=== PATIENT | male | born 1960 | race Caucasian/White ===

== ENCOUNTER 2016-06-22 12:51 | Emergency (ER) | payer BC ==
[2016-06-22] MEDS ORDERED: Ondansetron 4 MG/2 ML SDV IVPUSH ONE (13:25)
[2016-06-22] MEDS ORDERED: Sodium Chloride 0.9% 10 ML Syringe FLUSH PRN (13:25)
[2016-06-22] MEDS ORDERED: Sodium Chloride 0.9% 1,000 ML IV SCH (13:30)
--- NOTE | 2016-06-22 14:58 | EDM.PDOC ---
ED HPI GI/ABDOMINAL - General Chief Complaint: Gastrointestinal Problem Stated Complaint: SENT BY WALK-IN FOR AN EKG Time Seen by Provider: 06/22/16 13:16 Source of Information: Reports: Patient History Limitations: Reports: No limitations - History of Present Illness INITIAL COMMENTS - FREE TEXT/NARRATIVE: The patient presents with a cough and generalized weakness for about 1 week. He went to the walk in clinic and he vomited once. They were concerned it was his heart and they sent him over to be evaluated. He denies chest pain or shortness of breath. He did not check his temp ever but he felt warm and had the chills. He is nauseated now. He has no abdominal pain. He has no diarrhea or dysuria. He has been under lots of stress lately with a large bull sale last week. Timing/Duration: Reports: Week(s): (1) Context: Denies: sick contact, bad/questionable food, out of country travel, recent surgery Associated Symptoms: Reports: fever/chills, nausea/vomiting. Denies: chest pain , diarrhea - Related Data Allergies/ADRs: Allergies Allergy/AdvReac Type Severity Reaction Status Date / Time No Known Allergies Allergy Verified 06/22/16 13:03 Home Meds: Home Meds Azithromycin [IJD: Azithromycin] 250 mg PO DAILY #6 tab 06/22/16 [Rx] Codeine/Promethazine [Phenergan with Codeine] 5 - 10 ml PO Q6HR PRN #240 ml [Rx] Ondansetron [Zofran ODT] 4 mg PO Q6H PRN #20 tab.dis 06/22/16 [Rx] Past Medical History - Past Health History Medical/Surgical History: Denies Medical/Surgical History Cardiovascular History: Reports: None Other Respiratory History: pt has had a cough for 3-4 days Musculoskeletal History: Reports: None Neurological History: Reports: None Psychiatric History: Reports: None Endocrine/Metabolic History: Reports: None Oncologic (Cancer) History: Reports: None Dermatologic History: Reports: None Social & Family History - Family History Family Medical History: Noncontributory - Tobacco Use Smoking Status *Q: Never Smoker - Caffeine Use Caffeine Use: Reports: Coffee - Alcohol Use Days Per Week of Alcohol Use: 1 Number of Drinks Per Day: 1 Total Drinks Per Week: 1 - Recreational Drug Use Recreational Drug Use: No ED ROS GENERAL - Review of Systems Review Of Systems: See Below Constitutional: Reports: night sweats HEENT: Reports: No symptoms Respiratory: Reports: Cough. Denies: Shortness of Breath Cardiovascular: Reports: No symptoms Endocrine: Reports: no symptoms GI/Abdominal: Reports: Nausea, Vomiting. Denies: Abdominal pain, Diarrhea : Reports: no symptoms Musculoskeletal: Reports: no symptoms Skin: Reports: no symptoms ED EXAM, GI/ABD - Physical Exam Exam: See Below Exam Limited By: No limitations General Appearance: alert, no apparent distress Ears: normal external exam Nose: normal inspection Head: atraumatic, normocephalic Neck: normal inspection Respiratory/Chest: no respiratory distress, lungs clear, normal breath sounds Cardiovascular: regular rate, rhythm, no edema, no murmur GI/Abdominal: soft, non tender, no organomegaly, no mass Back Exam: normal inspection Extremities: normal inspection EKG INTERPRETATION EKG Date: 06/22/16 Time: 13:03 Rhythm: NSR Rate (beats/min): 79 [place]: normal P-wave: present QRS: normal ST-T: normal QT: normal EKG Interpretation Comments: Q waves in the inferior leads. Course - Vital Signs Last Recorded V/S: Last Vital Signs Temp 97.9 F 06/22/16 13:03 Pulse 80 06/22/16 13:03 Resp 20 06/22/16 13:03 BP 133/95 H 06/22/16 13:03 Pulse Ox 100 06/22/16 13:03 - Orders/Labs/Meds Orders: Active Orders 24 hr Category Date Time Status Cardiac Monitoring [RC] . DIRECTED Care 06/22/16 13:25 Active EKG 12 Lead [EKG Documentation Completion] [RC] STAT Care 06/22/16 13:12 Active Peripheral IV Care [RC] . DIRECTED Care 06/22/16 13:26 Active Chest 2V [CR] Stat Exams 06/22/16 13:26 Taken Sodium Chloride 0.9% [Normal Saline] 1,000 ml Med 06/22/16 13:30 Active IV .BOLUS Sodium Chloride 0.9% [Saline Flush] Med 06/22/16 13:25 Active 10 ml FLUSH ASDIRECTED PRN ED Antiemetic Medication Reflex [OM.PC] Stat Oth 06/22/16 13:25 Ordered Peripheral IV Insertion Adult [OM.PC] Stat Oth 06/22/16 13:25 Ordered Medication Orders Sodium Chloride (Normal Saline) 1,000 mls @ 1,000 mls/hr IV .BOLUS CLAUDIA Last Admin: 06/22/16 13:52 Dose: 1,000 mls/hr Sodium Chloride (Saline Flush) 10 ml FLUSH ASDIRECTED PRN PRN Reason: Keep Vein Open Last Admin: 06/22/16 13:30 Dose: 10 ml Labs: Laboratory Tests 06/22/16 06/22/16 Range/Units 13:30 13:30 WBC 9.75 H (4.23-9.07) K/mm3 RBC 5.38 (4.63-6.08) M/mm3 Hgb 16.3 (13.7-17.5) gm/L Hct 47.2 (40.1-51.0) % MCV 87.7 (79.0-92.2) fl MCH 30.3 (25.7-32.2) pg MCHC 34.5 (32.2-35.5) g/dl RDW Std Deviation 40.9 (35.1-43.9) fL Plt Count 200 (163-337) K/mm3 MPV 9.6 (9.4-12.3) fl Neut % (Auto) 85.2 H (34.0-67.9) % Lymph % (Auto) 9.8 L (21.8-53.1) % [place] % (Auto) 4.5 L (5.3-12.2) % Eos % (Auto) 0.2 L (0.8-7.0) Baso % (Auto) 0.1 (0.1-1.2) % Neut # 8.30 H (1.78-5.38) K/mm3 Lymph # 0.96 L (1.32-3.57) K/mm3 [place] # 0.44 (0.30-0.82) K/mm3 Eos # 0.02 L (0.04-0.54) K/mm3 Baso # 0.01 (0.01-0.08) K/mm3 Manual Slide Review Abnormal smear Sodium 139 (136-145) mEq/L Potassium 4.2 (3.5-5.1) mEq/L Chloride 104 (98-107) mEq/L Carbon Dioxide 27 (21-32) mEq/L Anion Gap 12.2 (5-15) BUN 17 (7-18) mg/dL Creatinine 1.3 (0.7-1.3) mg/dL Est Cr Clr Drug Dosing 74.65 mL/min Estimated GFR (MDRD) 57 (>60) mL/min BUN/Creatinine Ratio 13.1 L (14-18) Glucose 135 H (74-106) mg/dL Calcium 9.2 (8.5-10.1) mg/dL Total Bilirubin 0.4 (0.2-1.0) mg/dL AST 20 (15-37) U/L ALT 33 (16-63) U/L Alkaline Phosphatase 87 (46-116) U/L Troponin I < 0.017 (0.00-0.056) ng/mL Total Protein 7.6 (6.4-8.2) g/dl Albumin 4.1 (3.4-5.0) g/dl Globulin 3.5 gm/dL Albumin/Globulin Ratio 1.2 (1-2) Meds: Medications Generic Name Dose Route Start Last Admin Trade Name Freq PRN Reason Stop Dose Admin Sodium Chloride 1,000 mls @ 1,000 mls/hr 06/22/16 13:30 06/22/16 13:52 Normal Saline IV 1,000 mls/hr .BOLUS CLAUDIA Administration Sodium Chloride 10 ml 06/22/16 13:25 06/22/16 13:30 Saline Flush FLUSH 10 ml ASDIRECTED PRN Administration Keep Vein Open Discontinued Medications Generic Name Dose Route Start Last Admin Trade Name Freq PRN Reason Stop Dose Admin Ondansetron HCl 4 mg 06/22/16 13:25 06/22/16 13:52 Zofran IVPUSH 06/22/16 13:26 4 mg ONETIME ONE Administration - Re-Assessments/Exams Free Text/Narrative Re-Assessment/Exam: 06/22/16 14:54 I ordered an IV NS 1L bolus and zofran. His EKG looks good. I do not seen a pneumonia on the CXR. His CBC and CMP look good. His troponin is negative. His influenza is negative. I feel he has bronchitis. I will get him on a Z- pack, cough medicine and zofran. Departure - Departure Time of Disposition: 15:00 Disposition: Home, Self-Care 01 Condition: good Clinical Impression: Bronchitis Nausea & vomiting Qualifiers: Vomiting type: unspecified Vomiting Intractability: non-intractable Qualified Code(s): R11.2 - Nausea with vomiting, unspecified Prescriptions: Codeine/Promethazine [Phenergan with Codeine] 5 - 10 ml PO Q6HR PRN #240 ml PRN Reason: Cough Azithromycin [IJD: Azithromycin] 250 mg PO DAILY #6 tab Ondansetron [Zofran ODT] 4 mg PO Q6H PRN #20 tab.dis PRN Reason: Nausea/Vomiting Referrals: Devaughn Martin [Physician] - 1 Week Forms: ED Department Discharge Additional Instructions: Take the zithromax daily for 5 days. Take the cough medicine as needed. Take the zofran as needed for nausea and vomiting. Please return if you are worse. - My Orders Last 24 Hours: My Active Orders 06/22/16 13:25 Cardiac Monitoring [RC] . DIRECTED Sodium Chloride 0.9% [Saline Flush] 10 ml FLUSH ASDIRECTED PRN ED Antiemetic Medication Reflex [OM.PC] Stat Peripheral IV Insertion Adult [OM.PC] Stat 06/22/16 13:26 Peripheral IV Care [RC] . DIRECTED Chest 2V [CR] Stat 06/22/16 13:30 Sodium Chloride 0.9% [Normal Saline] 1,000 ml IV .BOLUS - Assessment/Plan Last 24 Hours: My Active Orders 06/22/16 13:25 Cardiac Monitoring [RC] . DIRECTED Sodium Chloride 0.9% [Saline Flush] 10 ml FLUSH ASDIRECTED PRN ED Antiemetic Medication Reflex [OM.PC] Stat Peripheral IV Insertion Adult [OM.PC] Stat 06/22/16 13:26 Peripheral IV Care [RC] . DIRECTED Chest 2V [CR] Stat 06/22/16 13:30 Sodium Chloride 0.9% [Normal Saline] 1,000 ml IV .BOLUS
[2016-06-22 15:19] VITALS: BP 110/71
--- NOTE | 2016-06-22 16:38 | CR ---
Chest: Two views of the chest were obtained. Comparison: No previous study. Heart size and mediastinum are normal. Lungs are clear. Scattered disc space narrowing and osteophytes are noted within the thoracic spine. Impression: 1. Incidental findings. Nothing acute is seen on two-view chest x-ray. Diagnostic code #2
== END 2016-06-22 15:16 | disposition home or self-care (01) ==
LOC: JD.ED 12:51
DX: J40 Bronchitis, not specified as acute or chronic (principal); R11.2 Nausea with vomiting, unspecified; Z79.2 Long term (current) use of antibiotics
CPT/HCPCS: 36415; 71020; 80053; 84484; 85025; 87804; 93005; 96361; 96374; 99284; J2405; J7040; J7050